=== PATIENT | male | born 1950 | race Caucasian/White ===

== ENCOUNTER → 2016-10-23 | Outpatient (CLI) | payer MEDICARE ==
[~2016-10-23] MED LIST: ATORVASTATIN 4040 MG PO; BUPROPION HCL100 M3 PO; CENTRUM SILVER1 EACH PO; DONNATAL1 TAB PO; FINASTERIDE5 M1 PO; LISINOPRIL10 MG PO; METOPROLOL SUCC25 M2 PO; MULTAQ400 MG PO; NAPROXEN SODIU500 MG PO; PANTOPRAZOLE SO40 M1 PO; PRADAXA75 M1 PO; TOPIRAMATE 100100 M1 PO
--- NOTE | 2016-10-23 13:48 | RADIOLOGY REPORT PS360 ---
EXAM: CERVICAL SPINE 4 OR 5 VIEWS HISTORY: CERVICALGIA ORDERING PHYSICIAN: Sid Nava MD PATIENT AGE: 66 years COMPARISON: None FINDINGS: Normal alignment. Mild degenerative disc disease is present at C5-C6 and C6-C7. Foraminal narrowing is present on the right C5-C6. No fracture or dislocation. There is straightening of the cervical lordosis nonspecific. No lytic or blastic change. IMPRESSION: Degenerative disc disease C5-C6 and C6-C7 with right-sided foraminal narrowing at C5-C6
--- NOTE | 2016-10-24 09:14 | RADIOLOGY REPORT PS360 ---
MRI-BRAIN W/WO HISTORY: Headache with dizziness and blurred vision. Left ear tinnitus TINNITUS OF LEFT EAR ORDERING PHYSICIAN: Sid Nava MD PATIENT AGE: 66 years COMPARISON: 11/03/2012 TECHNIQUE: Standard multiplanar multiecho sequences are performed without and with gadolinium enhancement FINDINGS: No midline shift, mass effect, intracranial hemorrhage, hydrocephalus, acute infarction, or enhancing lesion is evident. The cerebellopontine angles, cerebellum, and brainstem are unremarkable. There are a few periventricular and subcortical T2 white matter hyperintensities which are nonspecific probably due to minimal ischemic gliotic change from microvascular disease. No destructive effusion is evident. The hippocampal structures are unremarkable in the temporal horns are symmetric. Unremarkable pituitary and corpus callosum. No mastoid effusion or sinus air-fluid level. IMPRESSION: 1. Essentially negative MRI of the brain without and with contrast with no significant change
== END ==
LOC: RAD 09:14
DX: R51 Headache (principal); H93.12 Tinnitus, left ear; M54.2 Cervicalgia
CPT/HCPCS: A9576